=== PATIENT | female | born 1970 | race African-American/Black ===

== ENCOUNTER 2020-01-31 10:56 | Emergency (ER) | payer SELFPAY | END 2020-01-31 13:06 | disposition home or self-care (01) | LOC: ERS 10:56 | DX: L30.1 Dyshidrosis [pompholyx] (principal) | CPT/HCPCS: 99282 ==

== ENCOUNTER 2021-07-24 14:47 | Emergency (ER) | payer SELFPAY ==
[2021-07-25 00:18] LABS: SARS-CoV-2 PCR by NAA DETECTED (NotDetected)
== END 2021-07-24 15:17 | disposition home or self-care (01) ==
LOC: ERS 14:47
DX: U07.1 COVID-19 (principal); F17.200 Nicotine dependence, unspecified, uncomplicated
CPT/HCPCS: 99284; U0003; U0005